=== PATIENT | male | born 1960 | race African-American/Black ===

== ENCOUNTER 2016-09-03 18:50 | Inpatient (IN) | payer OTHER ==
[~2016-09-03] VITALS: Ht 185.4 cm; Wt 105.7 kg
--- NOTE | ~2016-09-03 | EKG ---
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 : 1960 Requested By: Dale Ríos Order Number: [id number] MD: Dave Mason Measurements Intervals [place] Rate: 100 P: 75 GA: 160 QRS: -63 QRSD: 141 T: 87 QT: 419 QTc: 541 Interpretive Statements Sinus tachycardia Multiform ventricular premature complexes Left atrial enlargement Right bundle branch block Left ventricular hypertrophy Anterior infarct, age indeterminate No previous ECG available for comparison Electronically Signed On 09-04-2016 7:35:54 CDT by Dave Mason [email or web address] <ELECTRONICALLY SIGNED> By: Dave Mason MD, [facility] 09/04/16 0735 14 Dave Mason MD, [facility] /EPI
--- NOTE | ~2016-09-03 | 2DMMODE ---
[facility] [place] [address] [place] [address] 2 D/M-MODE ECHOCARDIOGRAM Name: LORI LING Room #: 459-P ADM IN M.R.#: [id number] Admission: 09/03/16 Attend Phys: Antelmo Limon, Discharge: Date of : 60 Date of Service: 09/04/16 1101 Report #: [id number] THIS REPORT FOR: //name// APPROVED REPORT EXAM: Comprehensive 2D, Doppler, and color-flow Echocardiogram Patient Location: Bedside/Room 459 Blood Pressure: 125/78 mmHg HR: 87 bpm Rhythm: Irregular Other Information Study Quality: Good Indications NSTEMI, elevated troponin. Hx: Afib, CVA, HTN, HLP, DM 2D Dimensions RVDd: 51.36 mm LVEF(%): 25.37 (>50%) IVSd: 7.53 (7-11mm) LVOT Diam: 22.44 (18-24mm) LVDd: 75.23 mm PWd: 9.14 (7-11mm) Ascending Aorta: 34.04 mm LVDs: 66.07 (25-40mm) IVC: 24.00 mm Aortic Root: 34.00 mm Wilkerson's LVEF: 25.37 % Volumes Left Atrial Volume (Systole) Single Plane 4CH: 97.33 mL Single Plane 2CH: 110.95 mL LA ESV Index: 54.00 mL/m2 Aortic Valve AoV Peak Lyndon.: 0.91 m/s AO Peak Gr.: 3.33 mmHg LV Max P.41 mmHg LV Max: 0.59 m/s Mitral Valve MV E Max Lyndon.: 1.04 m/s MV Decel. Time: 157.02 ms Pulmonary Valve PV Peak Lyndon.: 0.39 m/s PV Peak Gr.: 0.60 mmHg [facility] [place] [address] [place] [address] 2 D/M-MODE ECHOCARDIOGRAM Name: LORI LING Room #: 459-P ADM IN M.R.#: [id number] Admission: 09/03/16 Attend Phys: Antelmo Limon, Discharge: Date of : 60 Date of Service: 09/04/16 1101 Report #: [id number] Tricuspid Valve TR Peak Lyndon.: 3.18 m/s RAP Estimate: 10.00 mmHg TR Peak Gr.: 40.38 mmHg RVSP: 50.00 mmHg Left Ventricle Left ventricle is severely dilated. Diffuse regional wall motion abnormalities are noted. There is normal left ventricular wall thickness. Left ventricular systolic function is severely decreased. LVEF is 20-25%. Diastology is indeterminate due to heart rhythm. Right Ventricle Right ventricle is dilated. Right ventricle is moderately hypokinetic. Atria Left atrium is severely dilated. Right atrium is dilated. Aortic Valve Aortic valve leaflets are mildly thickened. No aortic regurgitation is present. There is no aortic valvular stenosis. Mitral Valve The mitral valve is normal in structure. Severe mitral regurgitation. Tricuspid Valve The tricuspid valve is normal in structure. There is moderate tricuspid regurgitation. The right atrial pressure is estimated at 10 mmHg. There is moderate pulmonary hypertension with an estimated PAP of 50mmHg. Pulmonic Valve The pulmonary valve is normal in structure. Trace pulmonic regurgitation. Great Vessels The aortic root is normal in size. The ascending aorta is normal in size. IVC is dilated and collapses <50% with inspiration. Pericardium There is no pericardial effusion. <Conclusion> [facility] [place] [address] [place] [address] 2 D/M-MODE ECHOCARDIOGRAM Name: LORI LING Room #: 459-P ADM IN .R.#: [id number] Admission: 09/03/16 Attend Phys: Antelmo Limon, Discharge: Date of : 60 Date of Service: 09/04/16 1101 Report #: [id number] Left ventricle is severely dilated. Diffuse regional wall motion abnormalities are noted. Left ventricular systolic function is severely decreased. LVEF is 20-25%. Right ventricle is dilated. Right ventricle is moderately hypokinetic. Left atrium is severely dilated. Right atrium is dilated. Aortic valve leaflets are mildly thickened. The mitral valve is normal in structure. Severe mitral regurgitation. There is moderate tricuspid regurgitation. The right atrial pressure is estimated at 10 mmHg. There is moderate pulmonary hypertension with an estimated PAP of 50mmHg. Trace pulmonic regurgitation. <ELECTRONICALLY SIGNED> By: Odilon Villar MD 09/04/16 1101 1101 00 Odilon Villar MD /INF
--- NOTE | ~2016-09-03 | EKG ---
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 : 1960 Requested By: Love Childers Order Number: [id number] MD: Satish Porras Measurements Intervals [place] Rate: 82 P: 39 PA: 168 QRS: -64 QRSD: 139 T: 52 QT: 480 QTc: 561 Interpretive Statements Sinus rhythm Ventricular premature complex Left atrial enlargement Right bundle branch block Left ventricular hypertrophy Anterior infarct, old Compared to ECG 09/03/2016 21:15:03 Sinus tachycardia no longer present Myocardial infarct finding still present Electronically Signed On 09-04-2016 18:20:39 CDT by Satish Porras [email or web address] <ELECTRONICALLY SIGNED> By: Satish Porras MD 09/04/16 1820 4 4 Satish Porras MD /EPI
--- NOTE | ~2016-09-03 | H ---
[facility] [place] [address] [place] [address] HISTORY AND PHYSICAL Name: LORI LING Room #: 459- ADM IN M.R.#: [id number] Admission: 09/03/16 Attend Phys: Antelmo Limon MD Discharge: Date of : 60 Report #: [id number] THIS REPORT FOR: //name// CC: Nehal Mchugh ATTENDING PHYSICIAN: Dr. Nehal Blas. PRIMARY CARE PHYSICIAN: Dr. Mchugh. CHIEF COMPLAINT: Abdominal pain. HISTORY OF PRESENT ILLNESS: The patient is a 55-year-old -[place] male who came in to the ER from [facility]. He does have a history of a large CVA that has left him aphasic as well as with right-sided hemiparesis. He apparently was complaining of some abdominal pain and he really could not explain his pain, but when the facility asked him about the pain, he started crying. Therefore, he was brought into the ER. He normally does not have abdominal pain like this. He had a KUB done earlier in the day at his facility, which was negative. He was feeling nauseous, but denies any diarrhea. He is able to answer yes and no questions, but nodding his head and he does use some signs with his hands. He reports that he had a normal bowel movement 2 days ago, he initially was felt to be mildly fluid overloaded in the ER and was given a dose of Lasix, shortly after he arrived on the floor some of his pending labs from the ER returned and he was noted to have troponin of 0.86, upon further questioning he now states that he is having some right-sided chest pain. He says he has had pain for 2 days. He now rates his pain 5/10. He says this has been constant for 2 days. He says this pain was different than his abdominal pain, which he says has now resolved. He denies any history of coronary artery disease. He is not in any acute distress. 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 PAST SURGICAL HISTORY: None. ALLERGIES: No known drug allergies. HOME MEDICATIONS: Exelon 6 mg p.o. b.i.d., Coumadin 2.5 mg daily, Zocor 40 mg at bedtime, Carvedilol 3.125 mg b.i.d., lisinopril 40 mg daily, spironolactone 25 mg daily, Tylenol p.r.n., Dilantin 350 mg at bedtime, Keppra 500 mg t.i.d. and omeprazole 20 mg daily. SOCIAL HISTORY: The patient lives at [facility]. He denies any tobacco, alcohol or drug use. He is able to ambulate with a cane and also uses a wheelchair. [address] [address] HISTORY AND PHYSICAL Name: LORI LING Room #: 459-P [facility] IN M.R.#: [id number] Admission: 09/03/16 Attend Phys: Antelmo Limon MD Discharge: Date of : 60 Report #: [id number] FAMILY HISTORY: Negative for coronary artery disease. REVIEW OF SYSTEMS: This was unobtainable due to patient's current condition with an aphasia. PHYSICAL EXAMINATION: GENERAL: The patient is an alert male in no acute distress. VITAL SIGNS: Temperature 36.4, heart rate 92, respirations 27, blood pressure 122/85, oxygen 99% on room air. HEENT: PERRLA. Sclerae is nonicteric. Oral mucosa is pink and moist. NECK: Supple, no JVD noted. CARDIOVASCULAR: Heart tones are irregular. No murmurs, rubs or gallops. RESPIRATORY: Breath sounds are clear bilaterally. His breathing is nonlabored. ABDOMEN: Soft, nontender, nondistended with positive bowel sounds. He has no guarding or rigidity. VASCULAR: 1+ bilateral lower extremity edema. Pedal pulses are 2+. NEUROLOGIC: The patient is alert. He is oriented x 3 when asked yes or no questions as he is able to nod yes or no. He is aphasic. He is flaccid on the right side, but moving the left side without difficulty. SKIN: Intact. No rashes or lesions. LABORATORY AND DIAGNOSTICS: WBC is 6.1, hemoglobin 14, platelets 115. Sodium 144, potassium 4.2, BUN 24, creatinine 1.4, glucose 142 and LFTs are within normal limits. BNP is 4973. Lipase is 92. Troponin 0.86, INR 1.4. CT of the abdomen showed borderline cardiomegaly with small bilateral pleural effusions, no obstruction or inflammation. Chest x-ray showed poor inspiration and there is dense bibasilar atelectasis rather than pneumonitis and EKG showed sinus tachycardia with some PVC. ASSESSMENT AND PLAN: 1. Non-ST elevation myocardial infarction, this was incidental finding on his labs as he had not been complaining of any chest pain, we will continue to check serial cardiac enzymes and repeat EKG in the morning and will given a dose of therapeutic Lovenox now and consult cardiology and check an echocardiogram in the morning. 2. Abdominal pain. This has now resolved and does not seem to be related to the chest pain and CT showed no acute abdominal findings. 3. History of cerebrovascular accident with residual aphasia and right-sided hemiparesis, continue Coumadin daily. 4. History of "convulsions." I do not see or there is no documented history of seizures but he is on Dilantin as well as Keppra, which we will continue. 5. Hypertension. This is stable, continue home medications except for lisinopril and spironolactone as his creatinine is mildly elevated. 6. Acute kidney injury versus chronic kidney disease. We do not have any prior labs to evaluate. [facility] [address] [place] [address] HISTORY AND PHYSICAL Name: LORI LING Room #: 459-P ADM IN M.R.#: [id number] Admission: 09/03/16 Attend Phys: Antelmo Limon MD Discharge: Date of : 60 Report #: [id number] 7. Acute on questionable chronic heart failure. BNP is elevated, which he may be due to the elevated troponin. He also has some small bilateral pleural effusions on CT. He was given a dose of Lasix in the ER. We will further evaluate with an echocardiogram in the morning. 8. Deep venous thrombosis prophylaxis. Place sequential compression device. We will continue to follow the patient closely throughout the hospitalization and make changes based on clinical status. <ELECTRONICALLY SIGNED> By: LILO Russo 09/08/16 0658 0545 0631 Love Childers, LILO /nt
--- NOTE | ~2016-09-03 | HC ---
[facility] [place] [address] [place] [address] CONSULTATION Name: LORI LING Room #: 459-P ADM IN M.R.#: [id number] Admission: 09/03/16 Attend Phys: Antelmo Limon MD Discharge: Date of : 60 Report #: [id number] THIS REPORT FOR: //name// CC: Antelmo Mchugh DATE OF CONSULTATION: 09/07/2016. REASON FOR CONSULTATION: Oliguria and elevated serum creatinine. HISTORY OF PRESENT ILLNESS: This 55-year-old male has a history of prior CVA with resultant right hemiparesis and aphasia. The exact date of this recurrence is unknown. He has been a resident at the [facility]. He has had poor oral intake of both food and fluids. He presented to the Emergency Room with dehydration and was admitted for further evaluation and treatment. PAST MEDICAL HISTORY: Remarkable as described above for large vessel CVA with right-sided hemiparesis and aphasia. He has a longstanding history of hypertension, type 2 diabetes mellitus, atrial fibrillation, GERD, mood disorder, dyslipidemia. He has a broad history of convulsions. ALLERGIES: No known drug allergies. MEDICATIONS ON ADMISSION: Include Exelon, Coumadin, Zocor, carvedilol, lisinopril, spironolactone, Tylenol, Dilantin, Keppra and omeprazole. PERSONAL AND SOCIAL HISTORY: The patient is a intermediate resident. There is no documented history of alcohol, tobacco or substance abuse. REVIEW OF SYSTEMS: Unobtainable. PHYSICAL EXAMINATION: GENERAL: Reveals a well-developed, well-nourished male who appears clinically dehydrated. HEENT: Mucous membranes are dry. EXTREMITIES: There is no clubbing, cyanosis, edema or adenopathy. Skin turgor is diminished. VITAL SIGNS: At the time of consultation include temperature 98.5, pulse 93, blood pressure 128/74, saturation 100%. SKIN: Warm and dry. There is no edema present. HEENT: The head is normocephalic and atraumatic. The sclerae are white. The pharynx is benign. NECK: Supple. CHEST: Lungs rodriguez are grossly clear to percussion and auscultation. CARDIOVASCULAR: Reveals a regular rate and rhythm at this time. There is no murmur or rub noted. ABDOMEN: Soft and nontender, without palpable mass or organomegaly. [address] [address] CONSULTATION Name: LORI LING Room #: 459-P ADM IN .R.#: [id number] Admission: 09/03/16 Attend Phys: Antelmo Limon MD Discharge: Date of : 60 Report #: [id number] DIAGNOSTIC DATA: Available at the time of consultation include sodium 144, potassium 4.1, chloride 111, CO2 of 22, BUN 25, creatinine 1.2, glucose 99, calcium 8.5. INR 1.3. White blood cell count 6900, hemoglobin 14.7, hematocrit 44.3, platelet count 124,000. Urinalysis is pending. ASSESSMENT: 1. Acute kidney injury with peak serum creatinine of 1.5. I believe the patient is effectively prerenal due to poor oral intake of both fluid and nutrition. Given his current clinical state of right hemiparesis and expressive aphasia, consideration may need to be given to a PEG tube for both nutrition and fluid replacement. 2. Status post left cerebrovascular accident with right hemiparesis and significant aphasia deficit. 3. Type 2 diabetes mellitus. 4. Hypertension. PLAN: This unfortunately gentleman post major CVA with significant neurologic deficit will likely have ongoing nutrition and fluid intake issues as described. Consideration of PEG is in order. We will obtain screening urinary studies to confirm the suspected prerenal state. Urinalysis as well as urine for sodium, creatinine and protein has been ordered. Please see orders. <ELECTRONICALLY SIGNED> By: Skip Keith MD 09/08/16 1314 0912 1057 Skip Keith MD /nt
[~2016-09-03 18:50] MED LIST: ASPIR 8181 MG PO; CARAFATE 1 GM TA1 G1 PO; COLACE100 MG PO; COREG3.125 MG PO; COUMADIN 5 MG TA5 M1 PO; DILANTIN100 MG PO; EXELON6 MG PO; GABAPENTIN 100100 MG PO; KEPPRA 500 MG500 M1 PO; KLOR-CON 1010 MEQ PO; NORCO 5-325 TA1 EAC1 PO; OMEPRAZOLE20 M2 PO; ZESTRIL40 MG PO; ZOCOR40 MG PO
[2016-09-03 18:51] VITALS: BP 122/85
[2016-09-03 19:41] LABS: CALCIUM 8.1 mg/dL (8.5-10.1); CREATININE 1.4 mg/dL (0.6-1.3); POTASSIUM 4.2 mmol/L (3.5-5.1)
[2016-09-03 19:45] LABS: ABSOLUTE NEUTROPHILS 3.3 thou/uL (1.4-8.2); BASOPHILS 0.5 % (0.0-2.0); EOSINOPHILS 1.3 % (0.0-3.0); HEMATOCRIT 42.4 % (42.0-52.0); INR 1.4; LYMPHOCYTES 33.8 % (24.0-44.0); MCV 93.9 fL (80.0-100.0); MONOCYTES 10.6 % (1.0-8.0); PLATELET COUNT 115 thou/uL (150-400); POLYS 53.8 % (36.0-66.0); PROTIME 14.4 Seconds (9.3-11.4); RBC 4.51 mil/uL (4.50-6.00); RDW 14.2 % (10.5-14.5); WBC 6.1 thou/uL (4.0-11.0)
[2016-09-03 19:46] LABS: TOTAL BILIRUBIN 0.4 mg/dL (<0.1-1.0); TOTAL PROTEIN 6.5 g/dL (6.4-8.2)
[2016-09-03 19:47] LABS: MANUAL DIFF NO
[2016-09-03] MEDS ORDERED: APAP500 PO (20:17)
[2016-09-03] MEDS ORDERED: ALDACTONE25 MG PO (20:18)
[2016-09-03] MEDS ORDERED: RIVASTIGMINE6 MG PO (20:21)
[2016-09-03] MEDS ORDERED: ARTIFICIAL TEA1 EACH OP (20:24)
[2016-09-03 21:57] VITALS: BP 129/97
[2016-09-03 22:30] VITALS: BP 147/94
[2016-09-04 01:22] VITALS: BP 120/78
[2016-09-04 04:45] VITALS: BP 116/72
[2016-09-04 07:43] VITALS: BP 125/78
[2016-09-04 10:09] LABS: CHOLESTEROL 130 mg/dL (<200); HDL CHOLESTEROL 54 mg/dL (>40); LDL CHOLESTEROL 67 mg/dL (<100); TC:HDL 2.4 Ratio (Not establshd); TRIGLYCERIDE 46 mg/dL (<150); VLDL 9 mg/dL (<40)
[2016-09-04 11:18] VITALS: BP 131/88
[2016-09-04 18:07] VITALS: BP 107/74
[2016-09-04 19:43] VITALS: BP 127/76
[2016-09-04 20:21] LABS: HEMATOCRIT 44.3 % (42.0-52.0); HEMOGLOBIN 14.7 gm/dL (14.0-18.0); MCH 31.2 pg (26.0-34.0); MCHC 33.2 g/dL (28.0-37.0); MCV 93.9 fL (80.0-100.0); RBC 4.72 mil/uL (4.50-6.00); WBC 7.2 thou/uL (4.0-11.0)
[2016-09-04 20:29] LABS: CALCIUM 8.4 mg/dL (8.5-10.1); CREATININE 1.5 mg/dL (0.6-1.3); POTASSIUM 3.7 mmol/L (3.5-5.1)
[2016-09-05 03:08] VITALS: BP 124/79
[2016-09-05 04:07] LABS: INR 1.4; PROTIME 14.1 Seconds (9.3-11.4)
[2016-09-05 07:52] VITALS: BP 107/74
[2016-09-05 08:00] VITALS: BP 100/65
[2016-09-05 11:21] VITALS: BP 100/65
[2016-09-05] MEDS ORDERED: ADULT LOW DOSE81 MG PO (15:10)
[2016-09-05 15:34] VITALS: BP 103/88
[2016-09-05 19:18] VITALS: BP 118/77
[2016-09-06 03:13] VITALS: BP 138/101
[2016-09-06 05:00] LABS: INR 1.4; PROTIME 14.2 Seconds (9.3-11.4)
[2016-09-06 05:02] LABS: CALCIUM 8.5 mg/dL (8.5-10.1); CREATININE 1.2 mg/dL (0.6-1.3); POTASSIUM 4.1 mmol/L (3.5-5.1)
[2016-09-06 07:55] VITALS: BP 111/77
[2016-09-06 11:42] VITALS: BP 119/81
[2016-09-06 15:31] VITALS: BP 134/96
[2016-09-06 21:05] VITALS: BP 106/71
[2016-09-07 01:11] LABS: ABG SAMPLE TYPE ARTERIAL; BE(vivo) -3.5 mmol/L (-2 to +3); HCO3 20.5 mmol/L (22.0-26.0); LACTATE 1.45 mmol/L (0.5-2.0); O2(CT) 20.6 mL/dL (15.0-23.0); O2Hb 90.5 % (92.0-98.0); PCO2 34.1 mmHg (35.0-45.0); PO2 61.8 mmHg (80.0-100.0); pH 7.396 (7.360-7.450); sO2 91.9 % (92.0-98.0); tCO2 21.5 mmol/L (24.0-30.0)
[2016-09-07 01:12] LABS: STICK SITE R.BRACHIAL
[2016-09-07 03:36] VITALS: BP 128/74
[2016-09-07 06:26] LABS: INR 1.3; PROTIME 13.7 Seconds (9.3-11.4)
[2016-09-07 07:23] VITALS: BP 126/83
[2016-09-07 07:38] VITALS: BP 126/83
[2016-09-07 11:07] LABS: URINE BLOOD 2+ (Negative); URINE COLOR YELLOW; URINE GLUCOSE-RANDOM* NEGATIVE (Negative); URINE KETONES NEGATIVE (Negative); URINE LEUKOCYTES-REFLEX 1+ (Negative); URINE PROTEIN (DIPSTICK) 1+ (Negative); URINE SPECIFIC GRAVITY >= 1.030 (1.003-1.035); URINE UROBILINOGEN 0.2 E.U./dl (0.2-1.0)
[2016-09-07 11:09] LABS: ICTOTEST (BILI CONFIRMATORY) Negative (Negative); URINE BILIRUBIN NEGATIVE (Negative)
[2016-09-07 11:43] LABS: CASTS None Seen /LPF (None Seen); SQUAMOUS 0-3 Few /LPF (0-3)
[2016-09-07 11:44] LABS: CRYSTALS None Seen /LPF (None Seen); URINE RBC 0-2 Rare /HPF (0-2)
[2016-09-07 12:49] VITALS: BP 114/67
[2016-09-07 15:32] VITALS: BP 108/72
[2016-09-07 20:10] VITALS: BP 110/77
[2016-09-08 03:12] VITALS: BP 120/82
[2016-09-08 06:30] LABS: HEMATOCRIT 40.3 % (42.0-52.0); HEMOGLOBIN 13.5 gm/dL (14.0-18.0); MCH 31.3 pg (26.0-34.0); MCHC 33.5 g/dL (28.0-37.0); MCV 93.5 fL (80.0-100.0); RBC 4.31 mil/uL (4.50-6.00); RDW 13.8 % (10.5-14.5); WBC 6.9 thou/uL (4.0-11.0)
[2016-09-08 06:45] LABS: INR 1.5; PROTIME 15.5 Seconds (9.3-11.4)
[2016-09-08 06:59] LABS: CALCIUM 8.1 mg/dL (8.5-10.1); CREATININE 1.2 mg/dL (0.6-1.3); MAGNESIUM 1.8 mg/dL (1.8-2.4)
[2016-09-08 07:33] VITALS: BP 128/78
[2016-09-08 11:45] VITALS: BP 108/74
[2016-09-08 16:11] VITALS: BP 104/76
[2016-09-08 19:30] VITALS: BP 121/77
[2016-09-09 03:44] VITALS: BP 125/85
[2016-09-09 05:20] LABS: INR 1.6; PROTIME 16.1 Seconds (9.3-11.4)
[2016-09-09 07:15] VITALS: BP 116/84
[2016-09-09 11:18] VITALS: BP 127/111
[2016-09-09] MEDS ORDERED: FLOMAX0.4 MG PO (15:38)
== END 2016-09-09 17:56 | DRG 280 ==
LOC: ER 18:50 → EROBS 21:30 → 4W 21:30 → 4E 21:54 → 4W 09-04 01:05
PROVIDERS: Emergency Medicine; Internal Medicine; Internal Medicine Cardiovascular Disease; Nurse Practitioner Acute Care; Nurse Practitioner Gerontology; Physician Assistant
DX: I21.4 Non-ST elevation (NSTEMI) myocardial infarction (principal); I50.23 Acute on chronic systolic (congestive) heart failure; I13.0 Hypertensive heart and chronic kidney disease with heart failure and stage 1 through stage 4 chronic kidney disease, or unspecified chronic kidney disease; N17.9 Acute kidney failure, unspecified; I42.9 Cardiomyopathy, unspecified; I69.951 Hemiplegia and hemiparesis following unspecified cerebrovascular disease affecting right dominant side; N18.9 Chronic kidney disease, unspecified; E11.22 Type 2 diabetes mellitus with diabetic chronic kidney disease; I48.91 Unspecified atrial fibrillation; R34 Anuria and oliguria; E78.5 Hyperlipidemia, unspecified; F32.9 Major depressive disorder, single episode, unspecified; K21.9 Gastro-esophageal reflux disease without esophagitis; F01.50 Vascular dementia, unspecified severity, without behavioral disturbance, psychotic disturbance, mood disturbance, and anxiety; I69.920 Aphasia following unspecified cerebrovascular disease; Z79.4 Long term (current) use of insulin; Z79.899 Other long term (current) drug therapy
CPT/HCPCS: 10045; 10183